=== PATIENT | female | born 1965 | race Caucasian/White ===

== ENCOUNTER → 2024-12-05 08:32 | Outpatient (REF) | payer OTHER, SELFPAY | LOC: WDC 08:32 | PROVIDERS: ATTENDING PHYSICIAN Obstetrics & Gynecology; FAMILY PHYSICIAN Family Medicine | DX: R92.8 Other abnormal and inconclusive findings on diagnostic imaging of breast (principal) | CPT/HCPCS: 76642; 77062; 77066 ==